=== PATIENT | male | born 1965 | race Caucasian/White ===

== ENCOUNTER 2018-04-23 11:41 | Emergency (ER) | payer SELFPAY ==
[2018-04-23 12:11] LABS: BASOPHILS 0.1 % (0-2); EOSINOPHILS 0.1 % (0-7); HEMATOCRIT 37.3 % (42.0-54.0); HEMOGLOBIN 12.5 g/dL (13.5-17.5); IMMATURE GRANULOCYTES 0.4 % (0-5); LYMPHOCYTES 3.5 % (15-50); MCH 29.4 pg (26.0-34.0); MCHC 33.5 g/dL (31.0-37.0); MCV 87.8 fL (80.0-100.0); MEAN PLATELET VOLUME 8.8 fL (7.4-10.4); MONOCYTES 3.2 % (2-11); NEUTROPHILS 92.7 % (40-80); PLATELET COUNT 187 10x3/uL (130-400); RBC 4.25 10x6/uL (4.20-6.10); RDW 13.4 % (11.5-14.5); WBC 18.4 10x3/uL (4.8-10.8)
[2018-04-23 12:24] LABS: ALBUMIN 2.2 g/dL (3.4-5.0); ANION GAP 11.5 mmol/L (8-16); BILIRUBIN - TOTAL 0.85 mg/dL (0.2-1.3); CALCIUM 8.5 mg/dL (8.5-10.1); CARBON DIOXIDE 26.8 mmol/L (21.0-32.0); CREATININE - SERUM 1.2 mg/dL (0.6-1.3); POTASSIUM - SERUM 4.3 mmol/L (3.5-5.1); PROTEIN - SERUM 8.6 g/dL (6.4-8.2)
[2018-04-23 12:52] LABS: APPEARANCE CLEAR (CLEAR); BILIRUBIN NEGATIVE (NEGATIVE); COLOR YELLOW (YELLOW); GLUCOSE NEGATIVE (NEGATIVE); KETONE NEGATIVE (NEGATIVE); NITRITE NEGATIVE (NEGATIVE); PROTEIN NEGATIVE (NEGATIVE); SPECIFIC GRAVITY 1.015 (1.005-1.020); UROBILINOGEN NORMAL (NORMAL)
[2018-04-23 12:54] LABS: BACTERIA FEW /hpf (NONE SEEN); EPITHELIAL CELLS 0-5 /hpf (0-5); MUCUS <1+ /lpf (NONE SEEN); WHITE CELLS - URINE RARE /hpf (0-5)
[2018-04-26 16:15] LABS: AEROBE ID Preliminary report (()); RESULT 1 Gram positive cocci (())
== END 2018-04-23 17:10 | disposition home or self-care (01) ==
LOC: D.ER 11:41 → D.MS 14:48 → D.ER 17:10
PROVIDERS: Emergency Medicine
DX: R50.9 Fever, unspecified (principal); T81.4XXA Infection following a procedure, initial encounter

== ENCOUNTER 2018-12-02 14:33 | Emergency (ER) | payer OTHER ==
[~2018-12-02] VITALS: Ht 182.9 cm; Wt 84.1 kg
[2018-12-02 14:43] VITALS: Ht 182.9 cm; Wt 84.1 kg
[2018-12-02 19:39] LABS: BASOPHILS 0.2 % (0-2); EOSINOPHILS 0.9 % (0-7); HEMATOCRIT 37.9 % (42.0-54.0); HEMOGLOBIN 12.8 g/dL (13.5-17.5); IMMATURE GRANULOCYTES 0.5 % (0-5); LYMPHOCYTES 11.3 % (15-50); MCH 30.3 pg (26.0-34.0); MCHC 33.8 g/dL (31.0-37.0); MCV 89.8 fL (80.0-100.0); MEAN PLATELET VOLUME 9.1 fL (7.4-10.4); MONOCYTES 6.8 % (2-11); NEUTROPHILS 80.3 % (40-80); PLATELET COUNT 212 10x3/uL (130-400); RBC 4.22 10x6/uL (4.20-6.10); RDW 12.7 % (11.5-14.5); WBC 12.3 10x3/uL (4.8-10.8)
[2018-12-02 19:58] LABS: ALBUMIN 2.1 g/dL (3.4-5.0); ALKALINE PHOSPHATASE 62 U/L (46-116); ALT (SGPT) 21 U/L (10-68); BILIRUBIN - TOTAL 0.43 mg/dL (0.2-1.3); CALC OSMOLALITY 267 mosm/kg (275-300); CALCIUM 8.2 mg/dL (8.5-10.1); CHLORIDE - SERUM 100 mmol/L (98-107); GLUCOSE 96 mg/dL (74-106); PROTEIN - SERUM 7.8 g/dL (6.4-8.2); SODIUM 134 mmol/L (136-145); UREA NITROGEN 12 mg/dL (7-18); eGFR NON AFRICAN AMERICAN 82 mL/min (90-120)
[2018-12-02] MEDS ORDERED: CLEOCIN HCL300 MG PO (20:02)
[2018-12-02] MEDS ORDERED: NORCO 10-325 TA1 TAB PO (20:02)
[2018-12-02 21:31] VITALS: BP 123/72
== END 2018-12-02 21:32 | disposition home or self-care (01) ==
LOC: D.ER 14:33
PROVIDERS: Family Medicine
DX: M70.41 Prepatellar bursitis, right knee (principal); Y93.89 Activity, other specified; L03.116 Cellulitis of left lower limb

== ENCOUNTER 2018-12-10 02:23 | Inpatient (IN) | payer OTHER ==
[~2018-12-10] VITALS: Ht 182.9 cm; Wt 84.8 kg
[~2018-12-10 02:23] MED LIST: CLEOCIN HCL300 MG PO; NORCO 10-325 TA1 TAB PO
[2018-12-10 03:16] LABS: BASOPHILS 0.5 % (0-2); EOSINOPHILS 2.1 % (0-7); HEMATOCRIT 35.4 % (42.0-54.0); HEMOGLOBIN 11.7 g/dL (13.5-17.5); LYMPHOCYTES 37.6 % (15-50); MCH 29.8 pg (26.0-34.0); MCHC 33.1 g/dL (31.0-37.0); MCV 90.1 fL (80.0-100.0); MONOCYTES 12.5 % (2-11); NEUTROPHILS 46.3 % (40-80); PLATELET COUNT 243 10x3/uL (130-400); RBC 3.93 10x6/uL (4.20-6.10); WBC 5.9 10x3/uL (4.8-10.8)
[2018-12-10 03:36] LABS: ALBUMIN 2.7 g/dL (3.4-5.0); ANION GAP 10.8 mmol/L (8-16); BILIRUBIN - TOTAL 0.29 mg/dL (0.2-1.3); CALCIUM 8.3 mg/dL (8.5-10.1); CARBON DIOXIDE 27.4 mmol/L (21.0-32.0); CREATININE - SERUM 1.6 mg/dL (0.6-1.3); POTASSIUM - SERUM 4.2 mmol/L (3.5-5.1); PROTEIN - SERUM 8.5 g/dL (6.4-8.2)
--- NOTE | 2018-12-10 04:05 | NUR ---
RN CONTACTED LAB, ONLY 1 SET OF BLOOD CULTURES HAS BEEN DRAWN AT THIS TIME.
[2018-12-10 04:26] LABS: ERYTHROCYTE SEDIMENTATION RATE 45 mm/hr (0-20)
[2018-12-10 05:00] VITALS: BP 140/99
[2018-12-10 05:12] VITALS: BP 140/99; BMI 25.4
--- NOTE | 2018-12-10 05:22 | NUR ---
PT ARRIVED ON UNIT VIA WHEELCHAIR ESCORTED BY ER STAFF. IV ZOSYN INFUSING AT THIS TIME TO RIGHT UPPER ARM. GAVE X2 SANDWICH TRAYS AND X2 SODAS...PT HAS GOOD APPETITE WITH NO N/V. RLL RED FROM THE KNEE DOWN. OPEN SORES ON PERALTA AND UPPER FOOT. ELEVATED RLL AND PLACED PAD UNDER FOR DRAINAGE. WILL MONITOR FOR NEEDS.
--- NOTE | 2018-12-10 05:24 | NUR ---
ADMISSION ASSESSMENT AND HISTORY CONPLETE.
[2018-12-10 08:09] VITALS: BP 109/66
--- NOTE | 2018-12-10 08:30 | NUR ---
RESTING QUIETLY WITH EYES CLOSED. ORIENTED X3. NO C/O AT THIS TIME. LUNGS ARE CLEAR BILATERALLY, NO COUGH NOTED. SKIN IS INTACT WITHOUT REDNESS. IV TO RIGHT FOREARM IS PATENT WITHOUT REDNESS AT INSERTION SITE. DENIES NEEDS.
--- NOTE | 2018-12-10 10:00 | NUR ---
RESTING QUIETLY WITH EYES CLOSED. NO NEEDS NOTED.
[2018-12-10 11:01] VITALS: Ht 182.9 cm; Wt 84.8 kg
[2018-12-10 12:09] VITALS: BP 123/78
[2018-12-10 20:00] VITALS: BP 104/49
[2018-12-11 07:15] VITALS: BP 137/83
--- NOTE | 2018-12-11 07:15 | NUR ---
MORNING ASSESSMENT COMPLETE. SEE ASSESSMENT FLOWSHEET FOR FURTHER DETAILS. PT LYIGN IN BED AAO X3 TO PERSON, PLACE, AND TIME. C/O R LEG PAIN- CELLULITIS NOTED. HEART: S1 AND S2 AUSCULTATED AT AORTIC, PULMONIC, ERBS, TRICUSPID, AND MITRAL SITES- REG RHYTHM. RADIAL AND PEDAL PULSES PALP AND STRONG. LUNGS CTA. BOWEL SOUNDS ACTIVE X4. DENIES NEEDS AT THIS TIME.
[2018-12-11 07:43] LABS: BASOPHILS 0.5 % (0-2); EOSINOPHILS 2.4 % (0-7); HEMATOCRIT 34.6 % (42.0-54.0); IMMATURE GRANULOCYTES 0.8 % (0-5); LYMPHOCYTES 35.2 % (15-50); MCH 29.3 pg (26.0-34.0); MCHC 31.8 g/dL (31.0-37.0); MEAN PLATELET VOLUME 9.5 fL (7.4-10.4); MONOCYTES 9.9 % (2-11); NEUTROPHILS 51.2 % (40-80); PLATELET COUNT 200 10x3/uL (130-400); RBC 3.75 10x6/uL (4.20-6.10); RDW 13.2 % (11.5-14.5)
[2018-12-11 07:50] LABS: MCV 92.3 fL (80.0-100.0); WBC 3.8 10x3/uL (4.8-10.8)
[2018-12-11 08:02] LABS: CARBON DIOXIDE 26.4 mmol/L (21.0-32.0); CREATININE - SERUM 1.4 mg/dL (0.6-1.3); POTASSIUM - SERUM 4.4 mmol/L (3.5-5.1)
[2018-12-11 08:24] VITALS: BP 131/88
[2018-12-11 12:49] VITALS: BP 119/64
--- NOTE | 2018-12-11 14:42 | NUR ---
RESITED 22G PIV TO L FA. FLUSHES WELL. PT TOLERATED WELL.
[2018-12-11 16:08] VITALS: BP 119/74
[2018-12-11 20:00] VITALS: BP 130/67
--- NOTE | 2018-12-11 20:30 | NUR ---
PT SITTING UP IN BED, NO SIGNS OF DISTRESS. ALERT AND ORIENTED. STATES RIGHT LEG PAIN 5/10. GAVE NORCO ORDERED. LEFT UPPER ARM IV INFUSING NS @ 50. DENIES OTHER NEEDS AT THIS TIME. CL IN REACH, WILL CONTINUE TO MONITOR
--- NOTE | 2018-12-11 23:00 | NUR ---
PT CALLED TO INFORM HE PULLED HIS IV OUT. IV CATHETER INTACT UPON INSPECTION. PT REFUSED TO HAVE ANOTHER IV. INFORMED PT HE HAD VANC AND ZOSYN DUE AT 0400. PT STATED HE WAS BEING DC'D IN AM AND DID NOT NEED IT
--- NOTE | 2018-12-12 04:00 | NUR ---
PT REFUSED AM LAB DRAW. STATED TO GOLF COURSE ASSISTANT HE WAS "JUST STUCK YESTERDAY" AND THAT HE HAD BEEN STUCK ALL OVER HIS ARMS ALREADY AND DID NOT WANT TO BE STUCK AGAIN. STATED AGAIN THAT HE WOULD BE DC'D THIS AM
[2018-12-12 06:14] VITALS: BP 121/76
--- NOTE | 2018-12-12 07:49 | MORECARE ---
CASE MANAGEMENT DISCHARGE SUMMARY PATIENT: ONIEL LE UNIT: [id number] ADM DATE: 12/10/18 AGE: 53 : 61 SEX: M ROOM/BED: D.2206 AUTHOR: SANTOSH SWEET PHYSICIAN: REFERRING PHYSICIAN: XUAN HERNANDEZ MD DATE OF SERVICE: 12/12/18 Discharge Plan Patient Name: ONIEL LE [facility] [facility] 1965 Planned Disposition: Home Anticipated Discharge Date: 12/12/18 Discharge Date: Expected LOS: 2 Initial Reviewer: [email or web address] Initial Review Date: 12/12/2018 Generated: 12/12/18 8:49 am Comments DCP- Discharge Planning Updated by [email or web address]: Danielle Ureña on 12/12/18 6:[address] Patient Name: ONIEL LE Admission Status: ER Accout number: [id number] Admission Date: 12-10-2018 : 1965 Admission Diagnosis: Attending: XUAN HERNANDEZ Current LOS: 2 Anticipated DC Date: 12-12-2018 Planned Disposition: Home Primary Insurance: [employer] MA[employer]ED MEDICAID Discharge Planning Comments: CM MET WITH PATIENT FOR D/C NEEDS AND PLANS. PATIENT STATED HE LIVES WITH A FRIEND AND HIS FRIEND (JAYLA) WILL DRIVE HIM HOME AT DISCHARGE (SHOULD DISCHARGE TODAY). PATIENT STATED HE HAS NO STEPS OR STAIRS AT HIS HOME. PATIENT STATED HE IS INDEPENDENT WITH HIS CARE AND HAS NO DME AT HOME. PATIENT HAS NO PCP AND USES [facility]. PATIENT REFUSED HOME HEALTH. CM WILL CONTINUE TO FOLLOW PATIENT WITH D/C NEEDS AND PLANS. PCP NONE [facility] DARCY (AUNT) [phone] Oceanic Sciences Professor: Danielle Ureña DCPIA - Discharge Planning Initial Assessment Updated by [email or web address]: Danielle Ureña on 12/12/18 7:48 am * Is the patient Alert and Oriented? Yes * How many steps to enter\exit or inside your home? * PCP NONE * Pharmacy [facility] * Preadmission Environment Home with Family * ADLs Independent * Equipment None * List name and contact numbers for known caregivers / representatives who currently or will assist patient after discharge: JAYLA (FRIEND) DARCY (VARUNT) [phone]) * Verbal permission to speak to the caregivers and representatives has been obtained from the patient. Yes * Community resources currently utilized None * Additional services required to return to the preadmission environment? Yes * Can the patient safely return to the preadmission environment? Yes * Has this patient been hospitalized within the prior 30 days at any hospital? No Patient Name: ONIEL LE Page [phone] at 0749 All edits/amendments must be made on the electronic document DICTATION DATE: 12/12/18748 CHILD PSYCHOLOGIST: DEWAYNE 12/12/1849 RPT#: [id number] DC DATE: STATUS: ADM IN [facility] [address] [place] [address] END OF REPORT
[2018-12-12 08:12] VITALS: BP 139/81
[2018-12-12] MEDS ORDERED: KEFLEX500 MG PO (10:31)
[2018-12-12] MEDS ORDERED: COLACE100 MG PO (10:32)
[2018-12-12] MEDS ORDERED: NORCO 7.5/325 T1 TA1 PO (10:32)
--- NOTE | 2018-12-12 12:26 | NUR ---
PT LEFT FLOOR WITH ALL PERSONAL PBELONGINGS.
--- NOTE | 2018-12-17 13:03 | MORECARE ---
CASE MANAGEMENT DISCHARGE SUMMARY PATIENT: ONIEL LE UNIT: [id number] ADM DATE: 12/10/18 AGE: 53 : 61 SEX: M ROOM/BED: D.2206 AUTHOR: MICKIDOC PHYSICIAN: REFERRING PHYSICIAN: XUAN HERNANDEZ MD DATE OF SERVICE: 12/17/18 Discharge Plan Patient Name: ONIEL LE [facility] [facility] 1965 Planned Disposition: Home Anticipated Discharge Date: 12/12/18 Discharge Date: 12/12/2018 Expected LOS: 2 Initial Reviewer: [email or web address] Initial Review Date: 12/12/2018 Generated: 12/17/18 2:03 pm Comments DCP- Discharge Planning Updated by [email or web address]: Danielle Ureña on 12/12/18 6:[address] Patient Name: ONIEL LE Admission Status: ER Accout number: [id number] Admission Date: 12-10-2018 : 1965 Admission Diagnosis: Attending: XUAN HERNANDEZ Current LOS: 2 Anticipated DC Date: 12-12-2018 Planned Disposition: Home Primary Insurance: [employer] MANAGED MEDICAID Discharge Planning Comments: CM MET WITH PATIENT FOR D/C NEEDS AND PLANS. PATIENT STATED HE LIVES WITH A FRIEND AND HIS FRIEND (JAYLA) WILL DRIVE HIM HOME AT DISCHARGE (SHOULD DISCHARGE TODAY). PATIENT STATED HE HAS NO STEPS OR STAIRS AT HIS HOME. PATIENT STATED HE IS INDEPENDENT WITH HIS CARE AND HAS NO DME AT HOME. PATIENT HAS NO PCP AND USES [facility]. PATIENT REFUSED HOME HEALTH. CM WILL CONTINUE TO FOLLOW PATIENT WITH D/C NEEDS AND PLANS. PCP NONE [facility] DARCY (AUNT) [phone] Maintenance Mechanic Helper: Danielle Ureña DCPIA - Discharge Planning Initial Assessment Updated by [email or web address]: Danielle Ureña on 12/12/18 7:48 am * Is the patient Alert and Oriented? Yes * How many steps to enter\exit or inside your home? * PCP NONE * Pharmacy [facility] * Preadmission Environment Home with Family * ADLs Independent * Equipment None * List name and contact numbers for known caregivers / representatives who currently or will assist patient after discharge: JAYLA (FRIEND) DARCY (AUNT) [phone]) * Verbal permission to speak to the caregivers and representatives has been obtained from the patient. Yes * Community resources currently utilized None * Additional services required to return to the preadmission environment? Yes * Can the patient safely return to the preadmission environment? Yes * Has this patient been hospitalized within the prior 30 days at any hospital? No Last DP export: 12/12/18 6:49 a Patient Name: ONIEL LE Page [phone] at 1303 All edits/amendments must be made on the electronic document DICTATION DATE: 12/17/18 1302 FIELD MERCHANDISER: DEWAYNE 12/17/18 1302 RPT#: [id number] DC DATE:12/12/18 STATUS: DIS IN [facility] [address] [place] [address] END OF REPORT
== END 2018-12-12 13:00 | disposition home or self-care (01) | DRG 603 ==
LOC: D.ER 02:23 → D.MS 04:03
PROVIDERS: Family Medicine; Internal Medicine Nephrology; ADMIT Family Medicine
DX: L03.115 Cellulitis of right lower limb (principal); N17.9 Acute kidney failure, unspecified; F17.223 Nicotine dependence, chewing tobacco, with withdrawal; D64.9 Anemia, unspecified; R59.0 Localized enlarged lymph nodes

== ENCOUNTER 2019-02-08 12:30 | Inpatient (IN) | payer OTHER ==
[~2019-02-08] VITALS: Ht 182.9 cm; Wt 80.7 kg
[2019-02-08] VITALS (7 sets, daily range): BP systolic 109–170; BP diastolic 60–88; BMI 24.2
[~2019-02-08 12:30] MED LIST changes: +COLACE100 MG PO; +KEFLEX500 MG PO; +NORCO 7.5/325 T1 TA1 PO
[2019-02-08 16:40] LABS: BASOPHILS 0.1 % (0-2); EOSINOPHILS 0.2 % (0-7); HEMATOCRIT 35.8 % (42.0-54.0); HEMOGLOBIN 12.3 g/dL (13.5-17.5); IMMATURE GRANULOCYTES 1.5 % (0-5); LYMPHOCYTES 10.4 % (15-50); MCH 30.1 pg (26.0-34.0); MCHC 34.4 g/dL (31.0-37.0); MCV 87.7 fL (80.0-100.0); MEAN PLATELET VOLUME 9.7 fL (7.4-10.4); MONOCYTES 13.3 % (2-11); NEUTROPHILS 74.5 % (40-80); PLATELET COUNT 213 10x3/uL (130-400); RBC 4.08 10x6/uL (4.20-6.10); RDW 13.2 % (11.5-14.5); WBC 9.3 10x3/uL (4.8-10.8)
[2019-02-08 17:02] LABS: ALBUMIN 1.9 g/dL (3.4-5.0); ANION GAP 11.1 mmol/L (8-16); BILIRUBIN - TOTAL 0.58 mg/dL (0.2-1.3); CALCIUM 8.3 mg/dL (8.5-10.1); CARBON DIOXIDE 26.3 mmol/L (21.0-32.0); CREATININE - SERUM 1.1 mg/dL (0.6-1.3); POTASSIUM - SERUM 3.4 mmol/L (3.5-5.1); PROTEIN - SERUM 7.8 g/dL (6.4-8.2)
--- NOTE | 2019-02-08 18:01 | NUR ---
PT TO CT VIA WHEELCHAIR AT THIS TIME.
--- NOTE | 2019-02-08 20:25 | NUR ---
REPORT CALLED TO JERRY AT THIS TIME ON MED 3
[2019-02-09 00:05] VITALS: BP 119/68
[2019-02-09 05:52] VITALS: BP 120/74
[2019-02-09 07:31] LABS: BASOPHILS 0.1 % (0-2); EOSINOPHILS 0 % (0-7); HEMATOCRIT 39.2 % (42.0-54.0); HEMOGLOBIN 13.4 g/dL (13.5-17.5); IMMATURE GRANULOCYTES 1.6 % (0-5); LYMPHOCYTES 6.6 % (15-50); MCH 30.4 pg (26.0-34.0); MCHC 34.2 g/dL (31.0-37.0); MCV 88.9 fL (80.0-100.0); MEAN PLATELET VOLUME 9.7 fL (7.4-10.4); NEUTROPHILS 89.7 % (40-80); PLATELET COUNT 229 10x3/uL (130-400); RBC 4.41 10x6/uL (4.20-6.10); RDW 13.2 % (11.5-14.5); WBC 8.9 10x3/uL (4.8-10.8)
--- NOTE | 2019-02-09 08:00 | NUR ---
AWAKE AND ALERT. ORIENTED X3. NO C/O AT THIS TIME. LUNGS HAVE EXPIRATORY WHEEZES THROUGHOUT LUNG MCGINNIS. NON PRODUCTIVE COUGH NOTED. SKIN IS INTACT WITHOUT REDNESS. IV TO LEFT FOREARM IS PATENT WITHOUT REDNESS AT INSERTION SITE. BREAKFAST SERVED IN ROOM. DENIES NEEDS.
[2019-02-09 08:09] LABS: ALKALINE PHOSPHATASE 65 U/L (46-116); ALT (SGPT) 19 U/L (10-68); BILIRUBIN - TOTAL 0.33 mg/dL (0.2-1.3); CALC OSMOLALITY 268 mosm/kg (275-300); CALCIUM 8.8 mg/dL (8.5-10.1); CARBON DIOXIDE 25.6 mmol/L (21.0-32.0); CHLORIDE - SERUM 98 mmol/L (98-107); GLUCOSE 135 mg/dL (74-106); POTASSIUM - SERUM 3.6 mmol/L (3.5-5.1); PROTEIN - SERUM 8.4 g/dL (6.4-8.2); SODIUM 133 mmol/L (136-145); UREA NITROGEN 14 mg/dL (7-18); eGFR NON AFRICAN AMERICAN 82 mL/min (90-120)
[2019-02-09 09:07] VITALS: BP 122/79
--- NOTE | 2019-02-09 10:00 | NUR ---
RESTING QUIELTY IN BED WITH EYES CLOSED. NO NEEDS NOTED.
[2019-02-09 10:36] LABS: % SATURATION 13 % (15-55); IRON 32 ug/dl (35-150); TOTAL IRON BIND CAPACITY 232 ug/dl (260-445); UNSAT IRON BIND CAPACITY 200 ug/dl (150-375)
--- NOTE | 2019-02-09 12:30 | NUR ---
LUNCH SERVED IN ROOM. ATE ABOUT HALF OF TRAY. IS SWEATING PROFUSLY. WANTS TO TAKE A SHOWER.
--- NOTE | 2019-02-09 13:30 | NUR ---
UP TO SHOWER WITH SET UP ASSISTANCE.
[2019-02-09 13:50] VITALS: BP 147/88
[2019-02-09 17:35] VITALS: BP 153/89
--- NOTE | 2019-02-09 17:57 | NUR ---
SUPPER SERVED IN ROOM. FEEDS SELF. DENIES NEEDS.
[2019-02-09 19:30] VITALS: BP 126/77
--- NOTE | 2019-02-09 20:15 | NUR ---
PATIENT RESTING IN BED AND DENIES NEEDS AT THIS TIME. NO S/S OF DISTRESS. BED IN LOWEST POSITION AND CALL LIGHT WITHIN REACH. ENCOURAGED THE PATIENT TO CALL IF HE HAS NEEDS. WILL CONTINUE TO MONITOR.
[2019-02-10] VITALS: BP 127/77
[2019-02-10 04:00] VITALS: BP 128/86
--- NOTE | 2019-02-10 06:17 | NUR ---
PATIENT WAS YELLING AT THE CEREAL CHEMIST AND REFUSED MORNING LAB DRAW
[2019-02-10 06:52] LABS: APPEARANCE CLEAR (CLEAR); BILIRUBIN NEGATIVE (NEGATIVE); COLOR YELLOW (YELLOW); GLUCOSE NEGATIVE (NEGATIVE); KETONE NEGATIVE (NEGATIVE); NITRITE NEGATIVE (NEGATIVE); PROTEIN TRACE mg/dL (NEGATIVE); SPECIFIC GRAVITY 1.015 (1.005-1.020); UROBILINOGEN NORMAL (NORMAL)
[2019-02-10 06:54] LABS: BACTERIA FEW /hpf (NONE SEEN); EPITHELIAL CELLS 0-5 /hpf (0-5); WHITE CELLS - URINE 0-5 /hpf (0-5)
[2019-02-10 07:16] LABS: UDS - AMPHET POSITIVE QUAL (NEGATIVE); UDS - BARB NEGATIVE QUAL (NEGATIVE); UDS - BENZO NEGATIVE QUAL (NEGATIVE); UDS - COCAINE NEGATIVE QUAL (NEGATIVE); UDS - OPIATE NEGATIVE QUAL (NEGATIVE); UDS - PCP NEGATIVE QUAL (NEGATIVE); UDS - THC NEGATIVE QUAL (NEGATIVE)
--- NOTE | 2019-02-10 07:40 | NUR ---
AWAKE AND ALERT. ORIENTED X3. NO C/O THIS AM. LUNGS ARE IMPROVED FROM YESTERDAY, NO WHEEZES NOTED. SKIN IS INTACT WITHOUT REDNESS. IV TO LEFT FOREARM IS PATENT WITHOUT REDNESS AT INSERTION SITE. BREAKFAST SERVED IN ROOM. DENIES NEEDS. NON PRODUCTIVE COUGH NOTED.
[2019-02-10 08:00] VITALS: BP 145/91
--- NOTE | 2019-02-10 08:30 | NUR ---
STATED LAB COULD COME AFTER HE FINISHED BREAKFAST.
--- NOTE | 2019-02-10 09:30 | NUR ---
ATE ALL OF BREAKFAST. LABS DRAWN. DENIES NEEDS.
[2019-02-10 09:35] LABS: BASOPHILS 0 % (0-2); EOSINOPHILS 0 % (0-7); HEMATOCRIT 34.5 % (42.0-54.0); HEMOGLOBIN 11.4 g/dL (13.5-17.5); LYMPHOCYTES 5.6 % (15-50); MCH 29.4 pg (26.0-34.0); MCV 88.9 fL (80.0-100.0); MEAN PLATELET VOLUME 9.9 fL (7.4-10.4); MONOCYTES 4.8 % (2-11); NEUTROPHILS 88.6 % (40-80); PLATELET COUNT 273 10x3/uL (130-400); RBC 3.88 10x6/uL (4.20-6.10); RDW 13.4 % (11.5-14.5)
[2019-02-10 09:38] LABS: WBC 15.3 10x3/uL (4.8-10.8)
[2019-02-10 09:43] LABS: CALC OSMOLALITY 281 mosm/kg (275-300); CALCIUM 8.3 mg/dL (8.5-10.1); CARBON DIOXIDE 23.3 mmol/L (21.0-32.0); CHLORIDE - SERUM 106 mmol/L (98-107); GLUCOSE 149 mg/dL (74-106); POTASSIUM - SERUM 3.5 mmol/L (3.5-5.1); SODIUM 138 mmol/L (136-145); UREA NITROGEN 21 mg/dL (7-18); eGFR NON AFRICAN AMERICAN 82 mL/min (90-120)
[2019-02-10 12:00] VITALS: BP 127/80
[2019-02-10 16:22] VITALS: BP 133/84
--- NOTE | 2019-02-10 18:03 | NUR ---
ATE ALL OF SUPPER. DENIES NEEDS. NO CHANGES NOTED.
[2019-02-10 19:38] VITALS: BP 114/61
--- NOTE | 2019-02-10 23:20 | NUR ---
PATIENT RESTING IN BED WITH NO S/S OF DISTRESS AND DENIES NEEDS AT THIS TIME. BED IN LOWEST POSITION AND CALL LIGHT WITHIN REACH. ADMINISTERED MEDS PER ORDERS. WILL CONTINUE TO MONITOR
[2019-02-11 00:43] VITALS: BP 104/55
[2019-02-11 04:24] VITALS: BP 130/78
--- NOTE | 2019-02-11 06:43 | NUR ---
PATIENT REFUSED AM LAB DRAW
[2019-02-11 09:07] VITALS: BP 125/76
--- NOTE | 2019-02-11 09:30 | NUR ---
LYING IN BED DWITH EYES CLOSED. 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 NO APPARENT DISTRESS NOTED. BED IN LOWEST POSITION. WILL CONTINUE TO MONITOR.
[2019-02-11 12:17] LABS: BASOPHILS 0 % (0-2); EOSINOPHILS 0.1 % (0-7); HEMATOCRIT 33.5 % (42.0-54.0); HEMOGLOBIN 10.9 g/dL (13.5-17.5); IMMATURE GRANULOCYTES 1.9 % (0-5); LYMPHOCYTES 14.7 % (15-50); MCH 29.3 pg (26.0-34.0); MCHC 32.5 g/dL (31.0-37.0); MCV 90.1 fL (80.0-100.0); MEAN PLATELET VOLUME 9.7 fL (7.4-10.4); NEUTROPHILS 73.3 % (40-80); PLATELET COUNT 255 10x3/uL (130-400); RBC 3.72 10x6/uL (4.20-6.10); RDW 13.7 % (11.5-14.5)
[2019-02-11 12:28] VITALS: BP 110/62
[2019-02-11 12:30] LABS: CALC OSMOLALITY 281 mosm/kg (275-300); CALCIUM 7.7 mg/dL (8.5-10.1); CARBON DIOXIDE 26.5 mmol/L (21.0-32.0); CHLORIDE - SERUM 107 mmol/L (98-107); CREATININE - SERUM 0.9 mg/dL (0.6-1.3); POTASSIUM - SERUM 3.6 mmol/L (3.5-5.1); SODIUM 140 mmol/L (136-145); UREA NITROGEN 20 mg/dL (7-18); eGFR NON AFRICAN AMERICAN > 90 mL/min (90-120)
[2019-02-11 12:33] LABS: GLUCOSE 92 mg/dL (74-106)
[2019-02-11 14:08] VITALS: Ht 182.9 cm; Wt 80.7 kg
[2019-02-11 17:29] VITALS: BP 124/75
[2019-02-11 20:00] VITALS: BP 130/76
--- NOTE | 2019-02-11 21:17 | NUR ---
PATIENT RESTING IN BED WITH NO S/S OF DISTRESS. PATIENT DENIES NEEDS AT THIS TIME. ADMINISTERED MEDS PER ORDERS. ENCOURAGED THE PATIENT TO CALL IF HE HAS NEEDS. WILL CONTINUE TO MONITOR.
[2019-02-12] VITALS: BP 115/62
[2019-02-12 04:00] VITALS: BP 143/78
--- NOTE | 2019-02-12 09:10 | NUR ---
PT AM MEDS ADMINSITERED. PT REFUSED NICOTINE PATCH. WCTM.
[2019-02-12 09:12] VITALS: BP 127/76
[2019-02-12 09:15] LABS: BASOPHILS 0 % (0-2); EOSINOPHILS 0 % (0-7); HEMATOCRIT 36.2 % (42.0-54.0); HEMOGLOBIN 11.9 g/dL (13.5-17.5); IMMATURE GRANULOCYTES 2.5 % (0-5); MCH 29.5 pg (26.0-34.0); MCHC 32.9 g/dL (31.0-37.0); MCV 89.6 fL (80.0-100.0); MEAN PLATELET VOLUME 9.6 fL (7.4-10.4); MONOCYTES 2.7 % (2-11); NEUTROPHILS 81.8 % (40-80); PLATELET COUNT 284 10x3/uL (130-400); RBC 4.04 10x6/uL (4.20-6.10); RDW 13.6 % (11.5-14.5); WBC 11.6 10x3/uL (4.8-10.8)
[2019-02-12 09:21] LABS: FOLATE (FOLIC ACID) - SERUM 6.9 ng/mL (>3.0)
[2019-02-12 09:32] LABS: CALC OSMOLALITY 281 mosm/kg (275-300); CALCIUM 7.7 mg/dL (8.5-10.1); CARBON DIOXIDE 29.5 mmol/L (21.0-32.0); CHLORIDE - SERUM 106 mmol/L (98-107); POTASSIUM - SERUM 3.9 mmol/L (3.5-5.1); SODIUM 139 mmol/L (136-145); UREA NITROGEN 18 mg/dL (7-18); eGFR NON AFRICAN AMERICAN 82 mL/min (90-120)
[2019-02-12 09:33] LABS: GLUCOSE 140 mg/dL (74-106)
[2019-02-12 12:30] VITALS: BP 125/71
--- NOTE | 2019-02-12 12:52 | MORECARE ---
CASE MANAGEMENT DISCHARGE SUMMARY PATIENT: ONIEL LE UNIT: [id number] ADM DATE: 02/08/19 AGE: 53 : 61 SEX: M ROOM/BED: D.1213 AUTHOR: SANTOSH SWEET PHYSICIAN: REFERRING PHYSICIAN: KADE ARMAS MD DATE OF SERVICE: 02/12/19 Discharge Plan Patient Name: ONIEL LE [facility] [facility] 1965 Planned Disposition: Home Anticipated Discharge Date: Discharge Date: Expected LOS: Initial Reviewer: [email or web address] Initial Review Date: 02/12/2019 Generated: 02/12/19 1:52 pm Patient Name: ONIEL LE Page 26766 at 1252 All edits/amendments must be made on the electronic document DICTATION DATE: 02/12/19 1252 ASSISTANT PROFESSOR OF RADIOLOGY: DEWAYNE 02/12/19 1252 RPT#: [id number] DC DATE: STATUS: ADM IN [facility] [address] [place] [address] END OF REPORT
--- NOTE | 2019-02-12 13:00 | MORECARE ---
CASE MANAGEMENT DISCHARGE SUMMARY PATIENT: ONIEL LE UNIT: [id number] ADM DATE: 02/08/19 AGE: 53 : 61 SEX: M ROOM/BED: D.1213 AUTHOR: SANTOSH SWEET PHYSICIAN: REFERRING PHYSICIAN: KADE ARMAS MD DATE OF SERVICE: 02/12/19 Discharge Plan Patient Name: ONIEL LE Facility: [facility]:[place] : 1965 Planned Disposition: Home Anticipated Discharge Date: Discharge Date: Expected LOS: Initial Reviewer: [email or web address] Initial Review Date: 02/12/2019 Generated: 02/12/19 1:59 pm Comments DCP- Discharge Planning Updated by [email or web address]: Abida Almanza on 02/12/19 11:[address] Patient Name: ONIEL LE Admission Status: ER Accout number: [id number] Admission Date: 02-08-2019 : 1965 Admission Diagnosis: Attending: KADE ARMAS Current LOS: 4 Anticipated DC Date: Planned Disposition: Home Primary Insurance: [employer] MEDICAID Discharge Planning Comments: CM MET WITH PATIENT ABOUT DC PLANNING/NEEDS. STATES NO NEEDS AND PLANS TO DC TO HOME WITH . CM WILL FOLLOW AND ASSIST NEEDED WITH DC PLANNING/NEEDS. Feather Maker: Abida Almanza DCPIA - Discharge Planning Initial Assessment Updated by [email or web address]: Abida Almanza on 02/12/19 12:52 pm * Is the patient Alert and Oriented? Yes * PCP NONE * Pharmacy [facility] * Preadmission Environment Home with Family * ADLs Independent * Equipment None * List name and contact numbers for known caregivers / representatives who currently or will assist patient after discharge: DARCY BRIAN * Community resources currently utilized None * Additional services required to return to the preadmission environment? No * Can the patient safely return to the preadmission environment? Yes * Has this patient been hospitalized within the prior 30 days at any hospital? No Last DP export: 02/12/19 11:52 a Patient Name: ONIEL EL Page [phone] at 1300 All edits/amendments must be made on the electronic document DICTATION DATE: 02/12/19 1259 DATABASE ADMIN: DM 02/12/19 1259 RPT#: [id number] DC DATE: STATUS: ADM IN [facility] [address] [place] [address] END OF REPORT
[2019-02-12 17:18] VITALS: BP 139/70
[2019-02-12 20:00] VITALS: BP 140/83
--- NOTE | 2019-02-12 20:55 | NUR ---
ROUNDS COMPLETED. RESUMING PT CARE. PT IS ALERT LAYING IN BED. NO C/O VOICED. NO S/S OF DISTRESS NOTED. BED IN LOW POSITION WITH CALL LIGHT IN REACH. WILL CONTINUE TO MONITOR PT AND FOLLOW PLAN OF CARE.
[2019-02-13] VITALS: BP 135/74
--- NOTE | 2019-02-13 03:26 | NUR ---
I have reviewed this patient and I concur with the Shift Assessment completed by the Licensed Practical Nurse today this shift.
[2019-02-13 04:30] VITALS: BP 149/78
[2019-02-13 07:00] LABS: BASOPHILS 0.1 % (0-2); EOSINOPHILS 0.1 % (0-7); HEMATOCRIT 38.4 % (42.0-54.0); HEMOGLOBIN 12.8 g/dL (13.5-17.5); IMMATURE GRANULOCYTES 3.7 % (0-5); LYMPHOCYTES 11.7 % (15-50); MCH 29.8 pg (26.0-34.0); MCHC 33.3 g/dL (31.0-37.0); MCV 89.3 fL (80.0-100.0); MEAN PLATELET VOLUME 9.6 fL (7.4-10.4); MONOCYTES 3.3 % (2-11); NEUTROPHILS 81.1 % (40-80); PLATELET COUNT 308 10x3/uL (130-400); RDW 13.6 % (11.5-14.5); WBC 13.9 10x3/uL (4.8-10.8)
[2019-02-13 07:21] LABS: CALC OSMOLALITY 279 mosm/kg (275-300); CALCIUM 7.6 mg/dL (8.5-10.1); CARBON DIOXIDE 26.8 mmol/L (21.0-32.0); CHLORIDE - SERUM 105 mmol/L (98-107); GLUCOSE 102 mg/dL (74-106); POTASSIUM - SERUM 3.9 mmol/L (3.5-5.1); SODIUM 139 mmol/L (136-145); UREA NITROGEN 18 mg/dL (7-18); eGFR NON AFRICAN AMERICAN 82 mL/min (90-120)
--- NOTE | 2019-02-13 10:00 | NUR ---
PT AM MEDS ADMINISTERED. PT REQUESTING TO GO HOME. WCTM.
[2019-02-13] MEDS ORDERED: ZITHROMAX500 MG PO (11:08)
--- NOTE | 2019-02-13 11:08 | NUR ---
REMOVED THE PATIENTS IV FROM THE RIGHT FOREARM, TIP INTACT. PATIENT IS IN A BIT OF CRUZ TO GO HOME AND WANTS TO TAKE A SHOWER RIGHT NOW. FRANCK NOTIFIED. PATIENT INSTRUCTED IT WOULD BE APPROX 1 HOUR UNTIL THE PAPER WORK WAS READY, HE STATES HE UNDERSTANDS
--- NOTE | 2019-02-13 11:41 | MORECARE ---
CASE MANAGEMENT DISCHARGE SUMMARY PATIENT: ONIEL LE UNIT: [id number] ADM DATE: 02/08/19 AGE: 53 : 61 SEX: M ROOM/BED: D.1213 AUTHOR: SANTOSH SWEET PHYSICIAN: REFERRING PHYSICIAN: KADE ARMAS MD DATE OF SERVICE: 02/13/19 Discharge Plan Patient Name: ONIEL LE Facility[facility]:[place] : 1965 Planned Disposition: Home Anticipated Discharge Date: 02/13/19 Discharge Date: Expected LOS: 5 Initial Reviewer: [email or web address] Initial Review Date: 02/12/2019 Generated: 02/13/19 12:41 pm Comments DCP- Discharge Planning Updated by [email or web address]: Abida Almanza on 02/12/19 11:[address] Patient Name: ONIEL LE Admission Status: ER Accout number: [id number] Admission Date: 02-08-2019 : 1965 Admission Diagnosis: Attending: KADE ARMAS Current LOS: 4 Anticipated DC Date: Planned Disposition: Home Primary Insurance: [employer] MANAGED MEDICAID Discharge Planning Comments: CM MET WITH PATIENT ABOUT DC PLANNING/NEEDS. STATES NO NEEDS AND PLANS TO DC TO HOME WITH . CM WILL FOLLOW AND ASSIST NEEDED WITH DC PLANNING/NEEDS. Planning Consultant: Abida Almanza DCPIA - Discharge Planning Initial Assessment Updated by [email or web address]: Abida Almanza on 02/12/19 12:52 pm * Is the patient Alert and Oriented? Yes * PCP NONE * Pharmacy [facility] * Preadmission Environment Home with Family * ADLs Independent * Equipment None * List name and contact numbers for known caregivers / representatives who currently or will assist patient after discharge: DARCY BRIAN * Community resources currently utilized None * Additional services required to return to the preadmission environment? No * Can the patient safely return to the preadmission environment? Yes * Has this patient been hospitalized within the prior 30 days at any hospital? No Last DP export: 02/12/19 11:59 a Patient Name: ONIEL LE Page 31836 at 1141 All edits/amendments must be made on the electronic document DICTATION DATE: 02/13/19 1141 ULTRASOUND TECH: DEWAYNE 02/13/19 1141 RPT#: [id number] DC DATE: STATUS: ADM IN [facility] [address] [place] [address] END OF REPORT
--- NOTE | 2019-02-13 12:21 | NUR ---
PT DISCHARGE INSTRUCTIONS REVIEWED. PT ESCORTED OUT BY HOSPITAL STAFF. PT DISCHARGING HOME WITH FAMILY.
--- NOTE | 2019-02-13 12:57 | MORECARE ---
CASE MANAGEMENT DISCHARGE SUMMARY PATIENT: ONIEL LE UNIT: [id number] ADM DATE: 02/08/19 AGE: 53 : 61 SEX: M ROOM/BED: D.1213 AUTHOR: SANTOSH SWEET PHYSICIAN: REFERRING PHYSICIAN: KADE ARMAS MD DATE OF SERVICE: 02/13/19 Discharge Plan Patient Name: ONIEL LE Facility: [facility]:[place] : 1965 Planned Disposition: Home Anticipated Discharge Date: 02/13/19 Discharge Date: 02/13/2019 Expected LOS: 5 Initial Reviewer: [email or web address] Initial Review Date: 02/12/2019 Generated: 02/13/19 1:57 pm Comments DCP- Discharge Planning Updated by [email or web address]: Abida Almanza on 02/12/19 11:[address] Patient Name: ONIEL LE Admission Status: ER Accout number: [id number] Admission Date: 02-08-2019 : 1965 Admission Diagnosis: Attending: KADE ARMAS Current LOS: 4 Anticipated DC Date: Planned Disposition: Home Primary Insurance: [employer] MANAGED MEDICAID Discharge Planning Comments: CM MET WITH PATIENT ABOUT DC PLANNING/NEEDS. STATES NO NEEDS AND PLANS TO DC TO HOME WITH . CM WILL FOLLOW AND ASSIST NEEDED WITH DC PLANNING/NEEDS. Switch Box Installer: Abida Almanza DCPIA - Discharge Planning Initial Assessment Updated by [email or web address]: Abida Almanza on 02/12/19 12:52 pm * Is the patient Alert and Oriented? Yes * PCP NONE * Pharmacy [facility] * Preadmission Environment Home with Family * ADLs Independent * Equipment None * List name and contact numbers for known caregivers / representatives who currently or will assist patient after discharge: DARCY BRIAN * Community resources currently utilized None * Additional services required to return to the preadmission environment? No * Can the patient safely return to the preadmission environment? Yes * Has this patient been hospitalized within the prior 30 days at any hospital? No Last DP export: 02/13/19 10:41 a Patient Name: ONIEL LE Page [phone] at 1257 All edits/amendments must be made on the electronic document DICTATION DATE: 02/13/19 1256 AGGREGATE CONVEYOR OPERATOR: DEWAYNE 02/13/19 1256 RPT#: [id number] DC DATE:02/13/19 STATUS: DIS IN [facility] [address] [place] [address] END OF REPORT
== END 2019-02-13 12:23 | disposition home or self-care (01) | DRG 194 ==
LOC: D.ER 12:30 → D.M3 19:59 → D.EDHOLD 19:59 → D.WS 20:20 → D.M3 20:21
PROVIDERS: Family Medicine; ADMIT Internal Medicine Nephrology; ATTEND Internal Medicine Nephrology
DX: J18.1 Lobar pneumonia, unspecified organism (principal); E87.1 Hypo-osmolality and hyponatremia; F17.213 Nicotine dependence, cigarettes, with withdrawal; D64.9 Anemia, unspecified; F15.90 Other stimulant use, unspecified, uncomplicated

== ENCOUNTER 2019-03-26 04:38 | Emergency (ER) | payer OTHER ==
[~2019-03-26] VITALS: Ht 182.9 cm; Wt 80.5 kg
[~2019-03-26 04:38] MED LIST changes: +ZITHROMAX500 MG PO
[2019-03-26 04:51] VITALS: Ht 182.9 cm; Wt 80.5 kg
[2019-03-26] MEDS ORDERED: IBUPROFEN800 MG PO (05:36)
[2019-03-26] MEDS ORDERED: CYCLOBENZAPRINE10 MG PO (05:36)
[2019-03-26] MEDS ORDERED: ACETAMINOPHEN500 M1 PO (05:36)
[2019-03-26 06:19] VITALS: BP 126/88
== END 2019-03-26 06:24 | disposition home or self-care (01) ==
LOC: D.ER 04:38
DX: S90.32XA Contusion of left foot, initial encounter (principal); W20.8XXA Other cause of strike by thrown, projected or falling object, initial encounter; Y93.89 Activity, other specified; Y92.89 Other specified places as the place of occurrence of the external cause

== ENCOUNTER 2019-08-27 10:20 | Emergency (ER) | payer MEDICAID ==
[~2019-08-27] VITALS: Ht 182.9 cm; Wt 86.4 kg
[~2019-08-27 10:20] MED LIST changes: +ACETAMINOPHEN500 M1 PO; +CYCLOBENZAPRINE10 MG PO; +IBUPROFEN800 MG PO
[2019-08-27 10:24] VITALS: BP 133/86; Ht 182.9 cm; Wt 86.4 kg
[2019-08-27] MEDS ORDERED: ULTRAM50 MG PO (12:31)
== END 2019-08-27 12:36 | disposition home or self-care (01) ==
LOC: D.ER 10:20
DX: S92.351A Displaced fracture of fifth metatarsal bone, right foot, initial encounter for closed fracture (principal); W10.9XXA Fall (on) (from) unspecified stairs and steps, initial encounter

== ENCOUNTER 2021-05-25 11:06 | Emergency (ER) | payer SELFPAY ==
[~2021-05-25] VITALS: Ht 182.9 cm; Wt 84.1 kg
[~2021-05-25 11:06] MED LIST changes: +ULTRAM50 MG PO
[2021-05-25 11:14] VITALS: Ht 182.9 cm; Wt 84.1 kg
[2021-05-25] MEDS ORDERED: CLEOCIN HCL300 MG PO (12:24)
== END 2021-05-25 14:13 | disposition home or self-care (01) ==
LOC: D.ER 11:06
DX: T14.8XXA Other injury of unspecified body region, initial encounter (principal); S01.319A Laceration without foreign body of unspecified ear, initial encounter; S09.90XA Unspecified injury of head, initial encounter; W01.0XXA Fall on same level from slipping, tripping and stumbling without subsequent striking against object, initial encounter; Y93.9 Activity, unspecified; Y92.9 Unspecified place or not applicable